=== PATIENT | male | born 1945 | race Asian ===

== ENCOUNTER → 2016-12-04 | Outpatient (CLI) | payer MEDICAID | END | disposition home or self-care (01) | LOC: RADPV 10:15 | PROVIDERS: ATTEND Internal Medicine Nephrology | DX: N18.4 Chronic kidney disease, stage 4 (severe) (principal) | CPT/HCPCS: 76770 ==

== ENCOUNTER → 2016-12-25 | Outpatient (CLI) | payer MEDICAID ==
[2016-12-25 10:28] LABS: BASOPHILS % (AUTO) 0.3 % (0.0-2.0); EOSINOPHILS % (AUTO) 2.3 % (1.0-6.0); HEMATOCRIT 38.1 % (41-53); LYMPHOCYTES # (AUTO) 2.5 K/uL (1.0-4.8); LYMPHOCYTES % (AUTO) 31.4 % (22.0-44.0); MEAN CORPUSCULAR HEMOGLOBIN 30.8 pg (26.0-34.0); MEAN CORPUSCULAR HGB CONC 34.2 G/dL (31.0-37.0); MEAN CORPUSCULAR VOLUME 90 fL (80-100); MONOCYTES # (AUTO) 0.5 K/uL (0.1-1.0); MONOCYTES % (AUTO) 6.3 % (2.0-9.0); NEUTROPHILS # (AUTO) 4.8 K/uL (1.8-7.7); NEUTROPHILS % (AUTO) 59.7 % (40.0-70.0); PLATELET COUNT (AUTO) 279 K/uL (150-450); RED BLOOD CELL COUNT(AUTO) 4.23 MIL/uL (4.50-5.90); RED CELL DISTRIBUTION WIDTH 14.2 % (11.5-14.5)
[2016-12-25 10:38] LABS: HEMOGLOBIN A1C 8.1 % (4.5-6.2)
[2016-12-25 10:49] LABS: BILIRUBIN,TOTAL 0.2 mg/dL (0.1-1.0); CALCIUM, TOTAL 10.2 mg/dL (8.8-10.5); CHOL/HDL RATIO 5.7 (4.2-7.3); CREATININE 2.76 mg/dL (0.60-1.30); MAGNESIUM 2.3 mg/dL (1.80-2.40); PHOSPHORUS 5.6 mg/dL (2.5-4.9); THYROID STIMULATING HORMONE 2.69 uIU/mL (0.36-3.74); TOTAL PROTEIN, SERUM 8.5 g/dL (6.4-8.2)
[2016-12-25 10:53] LABS: APPEARANCE,URINE CLEAR (CLEAR); GLUCOSE, URINE (UA) NEGATIVE (NEGATIVE); KETONES,URINE NEGATIVE (NEGATIVE); LEUKOCYTE ESTERASE ,URINE NEGATIVE (NEGATIVE); OCCULT BLOOD,URINE NEGATIVE (NEGATIVE); PH,URINE 5.5 (5.0-8.0); PROTEIN,URINE POS 1+ (NEGATIVE)
[2016-12-25 10:56] LABS: ADD UA MICROSCOPIC NO
[2016-12-25 10:58] LABS: POTASSIUM 6.3 mmol/L (3.5-5.1)
[2016-12-25 10:59] LABS: URIC ACID 8.6 mg/dL (2.6-7.2)
[2016-12-26 12:40] LABS: CREATININE, URINE (mALB) 70.7 mg/dL (Not Estab.)
== END | disposition home or self-care (01) ==
LOC: LABPV 08:10
PROVIDERS: ATTEND Internal Medicine Nephrology
DX: E11.9 Type 2 diabetes mellitus without complications (principal); E78.1 Pure hyperglyceridemia; Z87.442 Personal history of urinary calculi
CPT/HCPCS: 81050; 82043; 82306; 82570; 82575; 83036; 83735; 83970; 84100; 84156; 84443; 84550

== ENCOUNTER → 2017-03-06 | Outpatient (CLI) | payer MEDICAID ==
[2017-03-06 09:41] LABS: BASOPHILS % (AUTO) 0.4 % (0.0-2.0); EOSINOPHILS % (AUTO) 2.8 % (1.0-6.0); HEMATOCRIT 40.7 % (41-53); HEMOGLOBIN 13.4 g/dL (13.5-17.5); LYMPHOCYTES # (AUTO) 1.8 K/uL (1.0-4.8); LYMPHOCYTES % (AUTO) 23.7 % (22.0-44.0); MEAN CORPUSCULAR HEMOGLOBIN 29.6 pg (26.0-34.0); MEAN CORPUSCULAR VOLUME 90 fL (80-100); MONOCYTES # (AUTO) 0.4 K/uL (0.1-1.0); NEUTROPHILS % (AUTO) 67.1 % (40.0-70.0); PLATELET COUNT (AUTO) 232 K/uL (150-450); RED BLOOD CELL COUNT(AUTO) 4.52 MIL/uL (4.50-5.90); RED CELL DISTRIBUTION WIDTH 13.5 % (11.5-14.5)
[2017-03-06 10:01] LABS: ALBUMIN 3.7 g/dL (3.4-5.0); CALCIUM, TOTAL 9.1 mg/dL (8.8-10.5); CREATININE 2.72 mg/dL (0.60-1.30); PHOSPHORUS 4.4 mg/dL (2.5-4.9)
[2017-03-06 10:05] LABS: HEMOGLOBIN A1C 8.1 % (4.5-6.2)
[2017-03-06 10:07] LABS: APPEARANCE,URINE CLEAR (CLEAR); BILIRUBIN,URINE NEGATIVE (NEGATIVE); GLUCOSE, URINE (UA) 250 mg/dL (NEGATIVE); KETONES,URINE NEGATIVE (NEGATIVE); LEUKOCYTE ESTERASE ,URINE NEGATIVE (NEGATIVE); NITRATE,URINE NEGATIVE (NEGATIVE); OCCULT BLOOD,URINE NEGATIVE (NEGATIVE); PH,URINE 5.5 (5.0-8.0); PROTEIN,URINE SEE CONFIRM (NEGATIVE); UROBILINOGEN,URINE 0.2 mg/dL (<=1.0)
[2017-03-06 11:17] LABS: SULFOSALICYLIC ACID,URINE 1+ (Negative)
[2017-03-06 11:18] LABS: RBC,URINE 0-2 /HPF (0-2); WBC,URINE 0-2 /HPF (0-5)
[2017-03-06 11:19] LABS: BACTERIA,URINE None Seen /HPF (None Seen)
[2017-03-06 11:20] LABS: SQUAMOUS EPITHELIAL CELL,UR Rare /LPF (None Seen)
== END | disposition home or self-care (01) ==
LOC: LABPV 08:01
PROVIDERS: ATTEND Internal Medicine Nephrology
DX: E11.22 Type 2 diabetes mellitus with diabetic chronic kidney disease (principal); N18.4 Chronic kidney disease, stage 4 (severe); E78.1 Pure hyperglyceridemia
CPT/HCPCS: 82043; 82570; 83036; 83735

== ENCOUNTER → 2017-05-07 | Outpatient (CLI) | payer MEDICAID ==
[2017-05-07 10:55] LABS: BASOPHILS % (AUTO) 0.5 % (0.0-2.0); EOSINOPHILS % (AUTO) 2.7 % (1.0-6.0); HEMATOCRIT 41.1 % (41-53); HEMOGLOBIN 13.8 g/dL (13.5-17.5); LYMPHOCYTES # (AUTO) 1.7 K/uL (1.0-4.8); LYMPHOCYTES % (AUTO) 23.6 % (22.0-44.0); MEAN CORPUSCULAR HEMOGLOBIN 29.7 pg (26.0-34.0); MEAN CORPUSCULAR HGB CONC 33.6 G/dL (31.0-37.0); MEAN CORPUSCULAR VOLUME 88 fL (80-100); MONOCYTES # (AUTO) 0.6 K/uL (0.1-1.0); MONOCYTES % (AUTO) 7.6 % (2.0-9.0); NEUTROPHILS # (AUTO) 4.8 K/uL (1.8-7.7); NEUTROPHILS % (AUTO) 65.6 % (40.0-70.0); PLATELET COUNT (AUTO) 269 K/uL (150-450); RED BLOOD CELL COUNT(AUTO) 4.65 MIL/uL (4.50-5.90); RED CELL DISTRIBUTION WIDTH 14.1 % (11.5-14.5)
[2017-05-07 11:03] LABS: APPEARANCE,URINE CLEAR (CLEAR); BILIRUBIN,URINE NEGATIVE (NEGATIVE); GLUCOSE, URINE (UA) NEGATIVE (NEGATIVE); KETONES,URINE NEGATIVE (NEGATIVE); LEUKOCYTE ESTERASE ,URINE NEGATIVE (NEGATIVE); NITRATE,URINE NEGATIVE (NEGATIVE); OCCULT BLOOD,URINE NEGATIVE (NEGATIVE); PH,URINE 5.5 (5.0-8.0); PROTEIN,URINE SEE CONFIRM (NEGATIVE); UROBILINOGEN,URINE 0.2 mg/dL (<=1.0)
[2017-05-07 11:18] LABS: ALBUMIN 3.9 g/dL (3.4-5.0); CALCIUM, TOTAL 9.6 mg/dL (8.8-10.5); CHOL/HDL RATIO 6.3 (4.2-7.3); CREATININE 2.95 mg/dL (0.60-1.30); PHOSPHORUS 3.8 mg/dL (2.5-4.9)
[2017-05-07 11:30] LABS: HEMOGLOBIN A1C 7.7 % (4.5-6.2)
[2017-05-07 12:17] LABS: SULFOSALICYLIC ACID,URINE 2+ (Negative)
[2017-05-07 12:18] LABS: RBC,URINE None Seen /HPF (0-2)
[2017-05-07 12:19] LABS: BACTERIA,URINE Rare /HPF (None Seen); SQUAMOUS EPITHELIAL CELL,UR Rare /LPF (None Seen); WBC,URINE 0-2 /HPF (0-5)
== END | disposition home or self-care (01) ==
LOC: LABPV 08:01
PROVIDERS: ATTEND Internal Medicine Nephrology
DX: E78.5 Hyperlipidemia, unspecified (principal); E55.9 Vitamin D deficiency, unspecified; R94.4 Abnormal results of kidney function studies; R82.90 Unspecified abnormal findings in urine; R68.89 Other general symptoms and signs; R79.89 Other specified abnormal findings of blood chemistry
CPT/HCPCS: 82043; 82306; 82570; 83036; 83735; 83970

== ENCOUNTER → 2017-06-04 | Outpatient (CLI) | payer MEDICAID ==
[2017-06-04 09:40] LABS: ALBUMIN 3.8 g/dL (3.4-5.0); CALCIUM, TOTAL 9.3 mg/dL (8.8-10.5); CREATININE 3.11 mg/dL (0.60-1.30); PHOSPHORUS 4.5 mg/dL (2.5-4.9); POTASSIUM 4.6 mmol/L (3.5-5.1)
== END | disposition home or self-care (01) ==
LOC: LABPV 08:30
PROVIDERS: ATTEND Internal Medicine Nephrology
DX: E11.22 Type 2 diabetes mellitus with diabetic chronic kidney disease (principal); N18.4 Chronic kidney disease, stage 4 (severe); E78.1 Pure hyperglyceridemia

== ENCOUNTER 2022-05-06 19:48 | Inpatient (IN) | payer MEDICAID, OTHER ==
[~2022-05-06] VITALS: Ht 167.6 cm; Wt 66.0 kg
[~2022-05-06 19:48] MED LIST: 0.9% SODIUM CHLORIDE 10 ML SYRINGE IVP ONE; AMIODARONE HCL 50 MG/ML 3 ML VIAL IVP ONE; ASPI-556 PO; ATOR20TA86 PO; EPINEPHrine 1:10,000 [1 MG/10 ML] SYRINGE IVP ONE; FURO80 PO; METO25XL PO
[2022-05-06] MEDS ORDERED: LABETALOL HCL 5 MG/ML 20 ML VIAL IVP PRN ×3 (20:00→21:15)
[2022-05-06 20:15] LABS: BASOPHILS % (AUTO) 0.5 % (0.0-2.0); EOSINOPHILS % (AUTO) 3.2 % (1.0-6.0); HEMATOCRIT 35.2 % (41-53); HEMOGLOBIN 11.6 g/dL (13.5-17.5); LYMPHOCYTES # (AUTO) 1.9 K/uL (1.0-4.8); LYMPHOCYTES % (AUTO) 29.1 % (22.0-44.0); MEAN CORPUSCULAR HEMOGLOBIN 30.7 pg (26.0-34.0); MEAN CORPUSCULAR HGB CONC 33.1 G/dL (31.0-37.0); MEAN CORPUSCULAR VOLUME 93 fL (80-100); MONOCYTES # (AUTO) 0.7 K/uL (0.1-1.0); MONOCYTES % (AUTO) 10.3 % (2.0-9.0); NEUTROPHILS # (AUTO) 3.6 K/uL (1.8-7.7); NEUTROPHILS % (AUTO) 56.9 % (40.0-70.0); PLATELET COUNT (AUTO) 120 K/uL (150-450); RED BLOOD CELL COUNT(AUTO) 3.79 MIL/uL (4.50-5.90)
[2022-05-06] MEDS ORDERED: SODIUM CHLORIDE 0.9% 100 ML ONE (20:18)
[2022-05-06] MEDS ORDERED: IOHEXOL 350 MG/ML 100 ML VIAL ONE (20:19)
[2022-05-06 20:24] LABS: CALCIUM, TOTAL 8.3 mg/dL (8.8-10.5); CREATININE 3.41 mg/dL (0.60-1.30); POTASSIUM 4.1 mmol/L (3.5-5.1)
[2022-05-06 20:28] LABS: PROTHROMBIN TIME 10.8 SEC (9.4-11.6)
[2022-05-06 20:30] LABS: ALBUMIN 3.4 g/dL (3.4-5.0); BILIRUBIN,TOTAL 0.6 mg/dL (0.1-1.0); TOTAL PROTEIN, SERUM 7.8 g/dL (6.4-8.2)
[2022-05-06] MEDS ORDERED: MORPHINE SULFATE 2 MG/ML SYRINGE IVP PRN (21:15)
[2022-05-06] MEDS ORDERED: ZOLPIDEM TARTRATE 5 MG TABLET PO PRN (21:15)
[2022-05-06] MEDS ORDERED: BISACODYL 10 MG RECTAL RECTAL SUPPOSITORY PR PRN (21:15)
[2022-05-06] MEDS ORDERED: ONDANSETRON HCL 4 MG/2 ML VIAL IVP PRN (21:15)
[2022-05-06] MEDS ORDERED: MAGNESIUM HYDROXIDE SUSPENSION 30 ML UDCUP PO PRN (21:15)
[2022-05-06] MEDS ORDERED: LevETIRAcetam 1,000 MG in DEXTROSE 5%-WATER 100 ML IV ONE (22:15)
[2022-05-06 23:18] LABS: COVID AG,FIA SOURCE NASAL SWAB
[2022-05-06 23:27] LABS: AMPHET/METH SCREEN,URINE NEGATIVE (NEGATIVE); BARBITURATE SCREEN, URINE NEGATIVE (NEGATIVE); BENZODIAZEPINES SCREEN,URINE NEGATIVE (NEGATIVE); CANNABINOID SCREEN,URINE NEGATIVE (NEGATIVE); COCAINE SCREEN,URINE NEGATIVE (NEGATIVE); METHADONE SCREEN, URINE NEGATIVE (NEGATIVE); OPIATE SCREEN,URINE NEGATIVE (NEGATIVE); PHENCYCLIDINE SCREEN,URINE NEGATIVE (NEGATIVE)
[2022-05-06 23:35] LABS: APPEARANCE,URINE CLEAR (CLEAR); BILIRUBIN,URINE NEGATIVE (NEGATIVE); GLUCOSE, URINE (UA) >=1000 mg/dL (NEGATIVE); KETONES,URINE NEGATIVE (NEGATIVE); LEUKOCYTE ESTERASE ,URINE NEGATIVE (NEGATIVE); NITRATE,URINE NEGATIVE (NEGATIVE); OCCULT BLOOD,URINE NEGATIVE (NEGATIVE); PROTEIN,URINE TRACE mg/dL (NEGATIVE); SPECIFIC GRAVITIY, URINE 1.015 (1.003-1.030); UROBILINOGEN,URINE <=1.0 mg/dL (<=1.0)
[2022-05-06 23:50] LABS: BACTERIA,URINE None Seen /HPF (None Seen); RBC,URINE None Seen /HPF (0-2); SQUAMOUS EPITHELIAL CELL,UR Rare /LPF (None Seen); WBC,URINE None Seen /HPF (0-5)
[2022-05-07] MEDS: DOCUSATE SODIUM 100 MG CAPSULE PO SCH ×2 (08:08→20:16)
[2022-05-07] MEDS: PANTOPRAZOLE SODIUM 40 MG DR TABLET PO SCH (08:08)
[2022-05-07] MEDS: DEXAMETHASONE SOD PHOS 4 MG/ML VIAL IVP SCH (08:19)
[2022-05-07] MEDS: LevETIRAcetam 500 MG in DEXTROSE 5%-WATER 100 ML IV SCH ×2 (09:49→21:38)
[2022-05-07 14:16] LABS: GLUCOSE,POINT OF CARE 178 MG/DL (70-110)
[2022-05-07] MEDS ORDERED: LISI10TA24 PO (21:22)
[2022-05-07] MEDS ORDERED: ATOR40TA71 PO (21:22)
[2022-05-07] MEDS ORDERED: EMPA10TA3 PO (21:22)
[2022-05-07] MEDS ORDERED: INSLAN SQ (21:22)
[2022-05-07] MEDS ORDERED: DEXTROSE 50%-WATER 25 GM/50 ML SYRINGE IVP PRN (21:30)
[2022-05-07 21:31] LABS: GLUCOSE,POINT OF CARE 244 MG/DL (70-110)
[2022-05-07] MEDS: INSULIN LISPRO 100 UNITS/ML SQ PRN (21:45)
[2022-05-08] MEDS: INSULIN LISPRO 100 UNITS/ML SQ PRN ×2 (05:58→18:01)
[2022-05-08 06:06] LABS: GLUCOSE,POINT OF CARE 203 MG/DL (70-110)
[2022-05-08] MEDS ORDERED: GELATIN SPONGE,ABSORBABLE 50 MM TP ONE (06:57)
[2022-05-08] MEDS ORDERED: LIDOCAINE 1%/EPI 1:200,000/PF 30 ML VIAL ONE (06:57)
[2022-05-08] MEDS ORDERED: THROMBIN, BOVINE 20000 UNITS/VIAL POWDER TP ONE (08:13)
[2022-05-08] MEDS ORDERED: SODIUM CL IRRIG SOLN BAG 0 ML IRRIG ONE (08:13)
[2022-05-08] MEDS ORDERED: SODIUM CHLORIDE 0.9% 0 ML ONE ×2 (08:26→08:37)
[2022-05-08] MEDS ORDERED: SODIUM CHLORIDE 0.9% 500 ML IV ONE (08:35)
[2022-05-08] MEDS ORDERED: VANCOMYCIN HCL 1 GM/VIAL ONE ×2 (08:36→13:05)
[2022-05-08] MEDS: DOCUSATE SODIUM 100 MG CAPSULE PO SCH ×2 (09:00→20:40)
[2022-05-08] MEDS: PANTOPRAZOLE SODIUM 40 MG DR TABLET PO SCH (09:00)
[2022-05-08] MEDS: DEXAMETHASONE SOD PHOS 4 MG/ML VIAL IVP SCH (09:55)
[2022-05-08] MEDS: LevETIRAcetam 500 MG in DEXTROSE 5%-WATER 100 ML IV SCH ×2 (10:09→21:39)
[2022-05-08] MEDS ORDERED: SODIUM CHLORIDE 0.9% 1,000 ML ONE (10:37)
[2022-05-08] MEDS ORDERED: LORazepam 2 MG/ML VIAL ONE (11:08)
[2022-05-08] MEDS ORDERED: RINGERS SOLUTION,LACTATED 1,000 ML IV ONE ×2 (12:07→13:45)
[2022-05-08] MEDS ORDERED: SODIUM CHLORIDE 0.9% 100 ML ONE (13:20)
[2022-05-08] MEDS ORDERED: ASPI-1522 PO (13:30)
[2022-05-08] MEDS ORDERED: SACU1TAB PO (13:30)
[2022-05-08] MEDS ORDERED: SODI5POW3 PO (13:30)
[2022-05-08] MEDS ORDERED: FURO40TA5 PO (13:30)
[2022-05-08] MEDS ORDERED: OMEG10005 PO (13:30)
[2022-05-08] MEDS ORDERED: GLIP5TAB11 PO (13:30)
[2022-05-08] MEDS ORDERED: BACITRACIN 28 GM OINTMENT TP ONE (13:52)
[2022-05-08] MEDS ORDERED: SUGAMMADEX SODIUM 200 MG/2 ML VIAL IVP ONE ×2 (14:01→14:32)
[2022-05-08] MEDS ORDERED: ACETAMINOPHEN 1000 MG/ISO-OSM 100 ML IV ONE (14:02)
[2022-05-08] MEDS ORDERED: FentaNYL CITRATE PF 100 MCG/2 ML VIAL IVP PRN (14:30)
[2022-05-08] MEDS ORDERED: HYDROmorphone HCL 2 MG/ML SYRINGE IVP PRN (14:30)
[2022-05-08 15:30] VITALS: BP 81/42
[2022-05-08] MEDS: PHENYLEPHRINE 200 MG/D5%-WATER 250 ML IV PRN ×2 (16:30→16:49)
[2022-05-08 16:38] VITALS: BP 113/56
[2022-05-08 18:01] LABS: GLUCOSE,POINT OF CARE 240 MG/DL (70-110)
[2022-05-08 20:00] VITALS: BP 116/81
[2022-05-08] MEDS ORDERED: SODIUM CHLORIDE 0.9% 250 ML IV ONE (20:08)
[2022-05-08] MEDS: CeFAZolin 1 GM/DEXTROSE 50 ML IV SCH (20:30)
[2022-05-09] VITALS: BP 121/82
[2022-05-09] MEDS: INSULIN LISPRO 100 UNITS/ML SQ PRN ×4 (01:03→17:59)
[2022-05-09] MEDS: CeFAZolin 1 GM/DEXTROSE 50 ML IV SCH ×3 (03:58→20:57)
[2022-05-09 04:00] VITALS: BP 127/92
[2022-05-09 04:02] LABS: GLUCOSE,POINT OF CARE 244 MG/DL (70-110)
[2022-05-09 06:00] LABS: BASOPHILS % (AUTO) 0.1 % (0.0-2.0); EOSINOPHILS % (AUTO) 0 % (1.0-6.0); HEMATOCRIT 32.5 % (41-53); HEMOGLOBIN 10.8 g/dL (13.5-17.5); LYMPHOCYTES # (AUTO) 0.8 K/uL (1.0-4.8); LYMPHOCYTES % (AUTO) 7.7 % (22.0-44.0); MEAN CORPUSCULAR HEMOGLOBIN 31.1 pg (26.0-34.0); MEAN CORPUSCULAR HGB CONC 33.4 G/dL (31.0-37.0); MEAN CORPUSCULAR VOLUME 93 fL (80-100); MONOCYTES % (AUTO) 9.8 % (2.0-9.0); NEUTROPHILS # (AUTO) 8.8 K/uL (1.8-7.7); NEUTROPHILS % (AUTO) 82.4 % (40.0-70.0); PLATELET COUNT (AUTO) 160 K/uL (150-450); RED BLOOD CELL COUNT(AUTO) 3.49 MIL/uL (4.50-5.90); RED CELL DISTRIBUTION WIDTH 17.3 % (11.5-14.5)
[2022-05-09] MEDS ORDERED: ONDANSETRON HCL 4 MG/2 ML VIAL IVP ONE (06:07)
[2022-05-09] MEDS ORDERED: FentaNYL CITRATE PF 100 MCG/2 ML VIAL IVP ONE (06:07)
[2022-05-09] MEDS ORDERED: ROCURONIUM BROMIDE 10 MG/ML 5 ML VIAL IVP ONE (06:07)
[2022-05-09] MEDS ORDERED: PHENYLEPHRINE HCL 10 MG/ML VIAL IVP ONE (06:07)
[2022-05-09] MEDS ORDERED: LIDOCAINE/PF 2% 5 ML VIAL IM ONE (06:07)
[2022-05-09] MEDS ORDERED: MIDAZOLAM HCL 2 MG/2 ML VIAL IVP ONE (06:07)
[2022-05-09] MEDS ORDERED: CefoTEtan DISODIUM 1 GM/VIAL IVP ONE (06:07)
[2022-05-09 06:12] LABS: CALCIUM, TOTAL 8.9 mg/dL (8.8-10.5); CREATININE 4.07 mg/dL (0.60-1.30); POTASSIUM 5.3 mmol/L (3.5-5.1)
[2022-05-09 08:00] VITALS: BP 119/83
[2022-05-09] MEDS: OXYGEN THERAPY IH SCH ×2 (08:00→20:00)
[2022-05-09] MEDS: DEXAMETHASONE SOD PHOS 4 MG/ML VIAL IVP SCH (08:21)
[2022-05-09] MEDS: PANTOPRAZOLE SODIUM 40 MG DR TABLET PO SCH (09:00)
[2022-05-09] MEDS: DOCUSATE SODIUM 100 MG CAPSULE PO SCH ×2 (09:00→20:58)
[2022-05-09] MEDS: LevETIRAcetam 500 MG in DEXTROSE 5%-WATER 100 ML IV SCH ×2 (10:13→22:17)
[2022-05-09 12:00] VITALS: BP 125/83
[2022-05-09] MEDS ORDERED: SODIUM POLYSTYRENE SULFONATE 15 GM/60 ML SUSPENSION BOTTLE PO ONE (13:15)
[2022-05-09 16:00] VITALS: BP 109/71
[2022-05-09 18:51] LABS: GLUCOSE,POINT OF CARE 171 MG/DL (70-110)
[2022-05-09 18:51] LABS: GLUCOSE,POINT OF CARE 192 MG/DL (70-110)
[2022-05-09 18:51] LABS: GLUCOSE,POINT OF CARE 236 MG/DL (70-110)
[2022-05-09 20:00] VITALS: BP 121/80
[2022-05-09] MEDS ORDERED: SODIUM CHLORIDE 0.9% 250 ML IV ONE (20:47)
[2022-05-09] MEDS ORDERED: SODIUM CHLORIDE 0.9% 500 ML IV ONE (20:47)
[2022-05-10] VITALS: BP 130/85
[2022-05-10] MEDS: INSULIN LISPRO 100 UNITS/ML SQ PRN ×4 (00:35→18:08)
[2022-05-10 00:51] LABS: GLUCOSE,POINT OF CARE 209 MG/DL (70-110)
[2022-05-10] MEDS: CeFAZolin 1 GM/DEXTROSE 50 ML IV SCH ×3 (03:28→20:39)
[2022-05-10 04:00] VITALS: BP 110/77
[2022-05-10 05:50] LABS: BASOPHILS % (AUTO) 0.1 % (0.0-2.0); EOSINOPHILS % (AUTO) 0 % (1.0-6.0); HEMATOCRIT 31.4 % (41-53); HEMOGLOBIN 10.3 g/dL (13.5-17.5); LYMPHOCYTES # (AUTO) 0.8 K/uL (1.0-4.8); MEAN CORPUSCULAR HEMOGLOBIN 30.7 pg (26.0-34.0); MEAN CORPUSCULAR HGB CONC 32.8 G/dL (31.0-37.0); MEAN CORPUSCULAR VOLUME 94 fL (80-100); MONOCYTES # (AUTO) 0.8 K/uL (0.1-1.0); MONOCYTES % (AUTO) 9.8 % (2.0-9.0); NEUTROPHILS # (AUTO) 6.6 K/uL (1.8-7.7); NEUTROPHILS % (AUTO) 80.1 % (40.0-70.0); PLATELET COUNT (AUTO) 116 K/uL (150-450); RED BLOOD CELL COUNT(AUTO) 3.36 MIL/uL (4.50-5.90); RED CELL DISTRIBUTION WIDTH 17.3 % (11.5-14.5)
[2022-05-10 05:58] LABS: CALCIUM, TOTAL 9.4 mg/dL (8.8-10.5); CREATININE 3.5 mg/dL (0.60-1.30); POTASSIUM 5.1 mmol/L (3.5-5.1)
[2022-05-10 06:11] LABS: GLUCOSE,POINT OF CARE 165 MG/DL (70-110)
[2022-05-10 08:00] VITALS: BP 118/59
[2022-05-10] MEDS: DOCUSATE SODIUM 100 MG CAPSULE PO SCH ×2 (09:06→20:53)
[2022-05-10] MEDS: PANTOPRAZOLE SODIUM 40 MG DR TABLET PO SCH (09:06)
[2022-05-10] MEDS: DEXAMETHASONE SOD PHOS 4 MG/ML VIAL IVP SCH (09:15)
[2022-05-10] MEDS: LevETIRAcetam 500 MG in DEXTROSE 5%-WATER 100 ML IV SCH ×2 (09:16→22:17)
[2022-05-10 12:00] VITALS: BP 131/74
[2022-05-10] MEDS: CITRIC ACID/SODIUM CITRATE 30 ML SOLUTION UDCUP PO SCH (12:32)
[2022-05-10] MEDS: CARVEDILOL 3.125 MG TABLET PO SCH ×2 (12:32→20:53)
[2022-05-10 16:00] VITALS: BP 122/69
[2022-05-10] MEDS ORDERED: DIGOXIN 250 MCG/ML 2 ML AMP IVP ONE (17:00)
[2022-05-10] MEDS ORDERED: AMIODARONE HCL 150 MG in DEXTROSE 5%-WATER 97 ML IV ONE (17:45)
[2022-05-10] MEDS ORDERED: AMIODARONE HCL 360 MG in DEXTROSE 5%-WATER 242.8 ML IV ONE (18:00)
[2022-05-10 20:00] VITALS: BP 118/98
[2022-05-10] MEDS: OXYGEN THERAPY IH SCH (20:00)
[2022-05-11] VITALS: BP 122/50
[2022-05-11] MEDS ORDERED: AMIODARONE HCL 540 MG in DEXTROSE 5%-WATER 239.2 ML IV ONE ×2
[2022-05-11] MEDS: INSULIN LISPRO 100 UNITS/ML SQ PRN ×3 (00:26→20:47)
[2022-05-11 04:00] VITALS: BP 143/73
[2022-05-11] MEDS: CeFAZolin 1 GM/DEXTROSE 50 ML IV SCH (04:11)
[2022-05-11 06:35] LABS: CALCIUM, TOTAL 9.3 mg/dL (8.8-10.5); CREATININE 3.45 mg/dL (0.60-1.30); PHOSPHORUS 4.2 mg/dL (2.5-4.9); POTASSIUM 5.2 mmol/L (3.5-5.1)
[2022-05-11 06:42] LABS: GLUCOSE,POINT OF CARE 311 MG/DL (70-110)
[2022-05-11 06:42] LABS: GLUCOSE,POINT OF CARE 246 MG/DL (70-110)
[2022-05-11 06:47] LABS: GLUCOSE,POINT OF CARE 279 MG/DL (70-110)
[2022-05-11 06:47] LABS: GLUCOSE,POINT OF CARE 215 MG/DL (70-110)
[2022-05-11 07:19] LABS: BASOPHILS % (AUTO) 0.1 % (0.0-2.0); EOSINOPHILS % (AUTO) 0 % (1.0-6.0); HEMATOCRIT 33.2 % (41-53); HEMOGLOBIN 10.8 g/dL (13.5-17.5); LYMPHOCYTES # (AUTO) 0.8 K/uL (1.0-4.8); LYMPHOCYTES % (AUTO) 9.9 % (22.0-44.0); MEAN CORPUSCULAR HEMOGLOBIN 30.5 pg (26.0-34.0); MEAN CORPUSCULAR HGB CONC 32.5 G/dL (31.0-37.0); MEAN CORPUSCULAR VOLUME 94 fL (80-100); MONOCYTES # (AUTO) 0.7 K/uL (0.1-1.0); MONOCYTES % (AUTO) 8.3 % (2.0-9.0); NEUTROPHILS % (AUTO) 81.7 % (40.0-70.0); PLATELET COUNT (AUTO) 127 K/uL (150-450); RED BLOOD CELL COUNT(AUTO) 3.53 MIL/uL (4.50-5.90); RED CELL DISTRIBUTION WIDTH 17.6 % (11.5-14.5)
[2022-05-11 08:00] VITALS: BP 133/91
[2022-05-11] MEDS: OXYGEN THERAPY IH SCH ×2 (08:00→20:00)
[2022-05-11] MEDS: CARVEDILOL 3.125 MG TABLET PO SCH ×2 (10:38→20:48)
[2022-05-11] MEDS: DOCUSATE SODIUM 100 MG CAPSULE PO SCH ×2 (10:38→20:48)
[2022-05-11] MEDS: DEXAMETHASONE SOD PHOS 4 MG/ML VIAL IVP SCH (10:38)
[2022-05-11] MEDS: PANTOPRAZOLE SODIUM 40 MG DR TABLET PO SCH (10:38)
[2022-05-11] MEDS: LevETIRAcetam 500 MG in DEXTROSE 5%-WATER 100 ML IV SCH ×2 (10:40→21:45)
[2022-05-11] MEDS: CITRIC ACID/SODIUM CITRATE 30 ML SOLUTION UDCUP PO SCH (10:54)
[2022-05-11 12:00] VITALS: BP 147/98
[2022-05-11 12:11] LABS: GLUCOSE,POINT OF CARE 269 MG/DL (70-110)
[2022-05-11 16:00] VITALS: BP 147/98
[2022-05-11] MEDS ORDERED: AMIODARONE HCL 750 MG in DEXTROSE 5%-WATER 485 ML IV SCH (18:00)
[2022-05-11 19:16] LABS: GLUCOSE,POINT OF CARE 280 MG/DL (70-110)
[2022-05-11 20:00] VITALS: BP 138/98
[2022-05-11] MEDS: HYDROCODONE/ACETAMINOPHEN 5-325 MG TABLET PO PRN (20:48)
[2022-05-11 21:26] LABS: GLUCOSE,POINT OF CARE 280 MG/DL (70-110)
[2022-05-12] VITALS: BP 142/90
[2022-05-12 04:00] VITALS: BP 150/90
[2022-05-12] MEDS: INSULIN LISPRO 100 UNITS/ML SQ PRN ×4 (06:04→22:10)
[2022-05-12 06:26] LABS: BASOPHILS % (AUTO) 0.1 % (0.0-2.0); EOSINOPHILS % (AUTO) 0 % (1.0-6.0); HEMATOCRIT 36.3 % (41-53); HEMOGLOBIN 12.1 g/dL (13.5-17.5); LYMPHOCYTES # (AUTO) 0.9 K/uL (1.0-4.8); LYMPHOCYTES % (AUTO) 9.3 % (22.0-44.0); MEAN CORPUSCULAR HEMOGLOBIN 31.3 pg (26.0-34.0); MEAN CORPUSCULAR HGB CONC 33.4 G/dL (31.0-37.0); MEAN CORPUSCULAR VOLUME 94 fL (80-100); MONOCYTES # (AUTO) 0.7 K/uL (0.1-1.0); MONOCYTES % (AUTO) 7.6 % (2.0-9.0); NEUTROPHILS # (AUTO) 7.9 K/uL (1.8-7.7); PLATELET COUNT (AUTO) 149 K/uL (150-450); RED BLOOD CELL COUNT(AUTO) 3.87 MIL/uL (4.50-5.90); RED CELL DISTRIBUTION WIDTH 17.1 % (11.5-14.5)
[2022-05-12 06:32] LABS: CREATININE 3.02 mg/dL (0.60-1.30); POTASSIUM 5.2 mmol/L (3.5-5.1)
[2022-05-12 08:00] VITALS: BP 130/84
[2022-05-12] MEDS: LevETIRAcetam 500 MG in DEXTROSE 5%-WATER 100 ML IV SCH ×2 (09:02→23:22)
[2022-05-12] MEDS: CARVEDILOL 3.125 MG TABLET PO SCH (09:02)
[2022-05-12] MEDS: PANTOPRAZOLE SODIUM 40 MG DR TABLET PO SCH (09:02)
[2022-05-12] MEDS: DEXAMETHASONE SOD PHOS 4 MG/ML VIAL IVP SCH (09:02)
[2022-05-12] MEDS: CITRIC ACID/SODIUM CITRATE 30 ML SOLUTION UDCUP PO SCH (09:02)
[2022-05-12] MEDS: DOCUSATE SODIUM 100 MG CAPSULE PO SCH ×2 (09:02→20:10)
[2022-05-12] MEDS: OXYGEN THERAPY IH SCH ×2 (10:21→19:48)
[2022-05-12] MEDS: HYDROCODONE/ACETAMINOPHEN 5-325 MG TABLET PO PRN (11:25)
[2022-05-12 11:51] LABS: GLUCOSE,POINT OF CARE 198 MG/DL (70-110)
[2022-05-12 12:00] VITALS: BP 129/78
[2022-05-12] MEDS: AMIODARONE HCL 200 MG TABLET PO SCH ×2 (12:37→20:09)
[2022-05-12 13:57] LABS: GLUCOSE,POINT OF CARE 392 MG/DL (70-110)
[2022-05-12 16:00] VITALS: BP 135/78
[2022-05-12 17:41] LABS: GLUCOSE,POINT OF CARE 379 MG/DL (70-110)
[2022-05-12 20:00] VITALS: BP 153/80
[2022-05-12] MEDS: CARVEDILOL 6.25 MG TABLET PO SCH (20:09)
[2022-05-12 22:16] LABS: GLUCOSE,POINT OF CARE 380 MG/DL (70-110)
[2022-05-13] VITALS (7 sets, daily range): BP systolic 103–136; BP diastolic 62–82
[2022-05-13] MEDS: INSULIN LISPRO 100 UNITS/ML SQ PRN ×4 (06:29→20:42)
[2022-05-13 07:15] LABS: GLUCOSE,POINT OF CARE 201 MG/DL (70-110)
[2022-05-13] MEDS: AMIODARONE HCL 200 MG TABLET PO SCH ×2 (08:55→20:29)
[2022-05-13] MEDS: CARVEDILOL 6.25 MG TABLET PO SCH ×2 (08:55→20:29)
[2022-05-13] MEDS: DEXAMETHASONE SOD PHOS 4 MG/ML VIAL IVP SCH (09:00)
[2022-05-13] MEDS: PANTOPRAZOLE SODIUM 40 MG DR TABLET PO SCH (09:00)
[2022-05-13] MEDS: DOCUSATE SODIUM 100 MG CAPSULE PO SCH ×2 (09:00→20:29)
[2022-05-13] MEDS: OXYGEN THERAPY IH SCH ×2 (09:12→20:24)
[2022-05-13 09:45] LABS: BASOPHILS % (AUTO) 0.2 % (0.0-2.0); EOSINOPHILS % (AUTO) 0.1 % (1.0-6.0); HEMATOCRIT 36.5 % (41-53); HEMOGLOBIN 11.8 g/dL (13.5-17.5); LYMPHOCYTES # (AUTO) 0.9 K/uL (1.0-4.8); LYMPHOCYTES % (AUTO) 9.2 % (22.0-44.0); MEAN CORPUSCULAR HEMOGLOBIN 30.2 pg (26.0-34.0); MEAN CORPUSCULAR HGB CONC 32.2 G/dL (31.0-37.0); MEAN CORPUSCULAR VOLUME 94 fL (80-100); MONOCYTES # (AUTO) 0.9 K/uL (0.1-1.0); MONOCYTES % (AUTO) 8.9 % (2.0-9.0); NEUTROPHILS # (AUTO) 8.3 K/uL (1.8-7.7); NEUTROPHILS % (AUTO) 81.6 % (40.0-70.0); PLATELET COUNT (AUTO) 144 K/uL (150-450); RED CELL DISTRIBUTION WIDTH 16.9 % (11.5-14.5)
[2022-05-13 09:52] LABS: CALCIUM, TOTAL 8.7 mg/dL (8.8-10.5); CREATININE 3.02 mg/dL (0.60-1.30); POTASSIUM 5.1 mmol/L (3.5-5.1)
[2022-05-13] MEDS: LevETIRAcetam 500 MG in DEXTROSE 5%-WATER 100 ML IV SCH ×2 (10:32→22:10)
[2022-05-13] MEDS: CITRIC ACID/SODIUM CITRATE 30 ML SOLUTION UDCUP PO SCH (10:34)
[2022-05-13] MEDS: INSULIN GLARGINE,HUM.REC.ANLOG 100 UNITS/ML SQ SCH (17:52)
[2022-05-13 20:31] LABS: GLUCOSE,POINT OF CARE 399 MG/DL (70-110)
[2022-05-13 20:31] LABS: GLUCOSE,POINT OF CARE 290 MG/DL (70-110)
[2022-05-13] MEDS ORDERED: SODIUM CHLORIDE 0.9% 1,000 ML ONE (22:08)
[2022-05-13 22:41] LABS: GLUCOMETER DEV NAME(LOC) 5N.1C; GLUCOSE,POINT OF CARE 394 MG/DL (70-110)
[2022-05-14 04:32] VITALS: BP 106/66
[2022-05-14] MEDS: INSULIN LISPRO 100 UNITS/ML SQ PRN ×4 (06:08→20:17)
[2022-05-14 08:07] VITALS: BP 105/60
[2022-05-14 08:49] LABS: BASOPHILS % (AUTO) 0.1 % (0.0-2.0); EOSINOPHILS % (AUTO) 0.1 % (1.0-6.0); HEMATOCRIT 34.2 % (41-53); HEMOGLOBIN 11.4 g/dL (13.5-17.5); LYMPHOCYTES # (AUTO) 0.7 K/uL (1.0-4.8); LYMPHOCYTES % (AUTO) 8.4 % (22.0-44.0); MEAN CORPUSCULAR HEMOGLOBIN 30.8 pg (26.0-34.0); MEAN CORPUSCULAR HGB CONC 33.2 G/dL (31.0-37.0); MEAN CORPUSCULAR VOLUME 93 fL (80-100); MONOCYTES # (AUTO) 0.7 K/uL (0.1-1.0); MONOCYTES % (AUTO) 8.2 % (2.0-9.0); NEUTROPHILS # (AUTO) 7.1 K/uL (1.8-7.7); NEUTROPHILS % (AUTO) 83.2 % (40.0-70.0); PLATELET COUNT (AUTO) 143 K/uL (150-450); RED BLOOD CELL COUNT(AUTO) 3.69 MIL/uL (4.50-5.90); RED CELL DISTRIBUTION WIDTH 16.7 % (11.5-14.5)
[2022-05-14 08:56] LABS: CALCIUM, TOTAL 8.5 mg/dL (8.8-10.5); CREATININE 2.65 mg/dL (0.60-1.30); POTASSIUM 5.1 mmol/L (3.5-5.1)
[2022-05-14] MEDS: OXYGEN THERAPY IH SCH ×2 (09:16→20:11)
[2022-05-14] MEDS: PANTOPRAZOLE SODIUM 40 MG DR TABLET PO SCH (09:17)
[2022-05-14] MEDS: AMIODARONE HCL 200 MG TABLET PO SCH ×2 (09:17→20:10)
[2022-05-14] MEDS: CARVEDILOL 6.25 MG TABLET PO SCH ×2 (09:17→20:09)
[2022-05-14] MEDS: DOCUSATE SODIUM 100 MG CAPSULE PO SCH ×2 (09:18→20:09)
[2022-05-14] MEDS: DEXAMETHASONE SOD PHOS 4 MG/ML VIAL IVP SCH (09:18)
[2022-05-14] MEDS: CITRIC ACID/SODIUM CITRATE 30 ML SOLUTION UDCUP PO SCH (09:25)
[2022-05-14] MEDS: INSULIN GLARGINE,HUM.REC.ANLOG 100 UNITS/ML SQ SCH ×2 (09:27→20:16)
[2022-05-14] MEDS: LevETIRAcetam 500 MG in DEXTROSE 5%-WATER 100 ML IV SCH ×2 (09:48→22:12)
[2022-05-14 09:51] LABS: GLUCOMETER DEV NAME(LOC) 5S.1B; GLUCOSE,POINT OF CARE 156 MG/DL (70-110)
[2022-05-14 10:29] LABS: MAGNESIUM 2.6 mg/dL (1.80-2.40); PHOSPHORUS 4.3 mg/dL (2.5-4.9)
[2022-05-14 12:00] VITALS: BP 99/56
[2022-05-14 16:00] VITALS: BP 109/84
[2022-05-14 19:23] VITALS: BP 110/61
[2022-05-14 22:31] LABS: GLUCOMETER DEV NAME(LOC) 5N.1C; GLUCOSE,POINT OF CARE 243 MG/DL (70-110)
[2022-05-14 22:31] LABS: GLUCOMETER DEV NAME(LOC) 5N.1C; GLUCOSE,POINT OF CARE 173 MG/DL (70-110)
[2022-05-14 22:31] LABS: GLUCOMETER DEV NAME(LOC) 5S.1B; GLUCOSE,POINT OF CARE 351 MG/DL (70-110)
[2022-05-14 22:31] LABS: GLUCOMETER DEV NAME(LOC) 5S.1B; GLUCOSE,POINT OF CARE 383 MG/DL (70-110)
[2022-05-15 00:04] VITALS: BP 97/54
[2022-05-15] MEDS: INSULIN LISPRO 100 UNITS/ML SQ PRN ×4 (06:18→20:25)
[2022-05-15 06:31] VITALS: BP 106/62
[2022-05-15 07:29] LABS: BASOPHILS % (AUTO) 0.1 % (0.0-2.0); EOSINOPHILS % (AUTO) 0.1 % (1.0-6.0); HEMATOCRIT 33.1 % (41-53); LYMPHOCYTES # (AUTO) 0.9 K/uL (1.0-4.8); LYMPHOCYTES % (AUTO) 10.3 % (22.0-44.0); MEAN CORPUSCULAR HEMOGLOBIN 31.1 pg (26.0-34.0); MEAN CORPUSCULAR HGB CONC 33.2 G/dL (31.0-37.0); MEAN CORPUSCULAR VOLUME 94 fL (80-100); MONOCYTES # (AUTO) 0.8 K/uL (0.1-1.0); MONOCYTES % (AUTO) 8.6 % (2.0-9.0); NEUTROPHILS # (AUTO) 7.5 K/uL (1.8-7.7); NEUTROPHILS % (AUTO) 80.9 % (40.0-70.0); PLATELET COUNT (AUTO) 143 K/uL (150-450); RED BLOOD CELL COUNT(AUTO) 3.53 MIL/uL (4.50-5.90); RED CELL DISTRIBUTION WIDTH 16.7 % (11.5-14.5)
[2022-05-15 07:30] VITALS: BP 110/65
[2022-05-15 07:45] LABS: CALCIUM, TOTAL 8.4 mg/dL (8.8-10.5); CREATININE 2.75 mg/dL (0.60-1.30); MAGNESIUM 2.6 mg/dL (1.80-2.40); PHOSPHORUS 4.5 mg/dL (2.5-4.9); POTASSIUM 5.6 mmol/L (3.5-5.1)
[2022-05-15] MEDS ORDERED: SODIUM ZIRCONIUM CYCLOSILICATE 5 GM POWDER PACKET PO ONE (09:00)
[2022-05-15] MEDS: DOCUSATE SODIUM 100 MG CAPSULE PO SCH ×2 (09:00→20:21)
[2022-05-15] MEDS: OXYGEN THERAPY IH SCH ×2 (09:08→20:18)
[2022-05-15] MEDS: CITRIC ACID/SODIUM CITRATE 30 ML SOLUTION UDCUP PO SCH (09:08)
[2022-05-15] MEDS: AMIODARONE HCL 200 MG TABLET PO SCH ×2 (09:09→20:22)
[2022-05-15] MEDS: PANTOPRAZOLE SODIUM 40 MG DR TABLET PO SCH (09:09)
[2022-05-15] MEDS: CARVEDILOL 6.25 MG TABLET PO SCH ×2 (09:09→20:21)
[2022-05-15] MEDS: DEXAMETHASONE SOD PHOS 4 MG/ML VIAL IVP SCH (09:10)
[2022-05-15] MEDS: LevETIRAcetam 500 MG in DEXTROSE 5%-WATER 100 ML IV SCH ×2 (09:21→22:10)
[2022-05-15] MEDS: INSULIN GLARGINE,HUM.REC.ANLOG 100 UNITS/ML SQ SCH ×2 (09:22→20:24)
[2022-05-15 10:46] LABS: GLUCOMETER DEV NAME(LOC) 5S.1B; GLUCOSE,POINT OF CARE 165 MG/DL (70-110)
[2022-05-15 10:46] LABS: GLUCOMETER DEV NAME(LOC) 5S.1B; GLUCOSE,POINT OF CARE 179 MG/DL (70-110)
[2022-05-15 11:03] VITALS: BP 112/64
[2022-05-15 12:01] LABS: GLUCOMETER DEV NAME(LOC) 5S.1B; GLUCOSE,POINT OF CARE 257 MG/DL (70-110)
[2022-05-15 15:01] VITALS: BP 113/60
[2022-05-15 19:30] VITALS: BP 133/70
[2022-05-15 20:20] LABS: GLUCOMETER DEV NAME(LOC) 5N.1C; GLUCOSE,POINT OF CARE 348 MG/DL (70-110)
[2022-05-15] MEDS ORDERED: SODIUM POLYSTYRENE SULFONATE 15 GM/60 ML SUSPENSION BOTTLE PO ONE (21:00)
[2022-05-15] MEDS ORDERED: CALCIUM GLUCONATE 1,000 MG in DEXTROSE 5%-WATER 50 ML IV ONE (21:00)
[2022-05-15 21:07] LABS: GLUCOMETER DEV NAME(LOC) 5S.1B; GLUCOSE,POINT OF CARE 335 MG/DL (70-110)
[2022-05-16 00:18] VITALS: BP 113/64
[2022-05-16 04:23] VITALS: BP 115/64
[2022-05-16 06:14] LABS: EOSINOPHILS % (AUTO) 0 % (1.0-6.0); HEMATOCRIT 33.5 % (41-53); HEMOGLOBIN 11.3 g/dL (13.5-17.5); LYMPHOCYTES # (AUTO) 0.8 K/uL (1.0-4.8); LYMPHOCYTES % (AUTO) 7.1 % (22.0-44.0); MEAN CORPUSCULAR HEMOGLOBIN 31.5 pg (26.0-34.0); MEAN CORPUSCULAR HGB CONC 33.7 G/dL (31.0-37.0); MEAN CORPUSCULAR VOLUME 94 fL (80-100); MONOCYTES # (AUTO) 0.9 K/uL (0.1-1.0); MONOCYTES % (AUTO) 8.5 % (2.0-9.0); NEUTROPHILS # (AUTO) 9.1 K/uL (1.8-7.7); NEUTROPHILS % (AUTO) 84.4 % (40.0-70.0); PLATELET COUNT (AUTO) 151 K/uL (150-450); RED BLOOD CELL COUNT(AUTO) 3.58 MIL/uL (4.50-5.90); RED CELL DISTRIBUTION WIDTH 17.2 % (11.5-14.5)
[2022-05-16 06:41] LABS: GLUCOMETER DEV NAME(LOC) 5S.1B; GLUCOSE,POINT OF CARE 154 MG/DL (70-110)
[2022-05-16 06:41] LABS: CALCIUM, TOTAL 8.2 mg/dL (8.8-10.5); CREATININE 2.87 mg/dL (0.60-1.30); MAGNESIUM 2.3 mg/dL (1.80-2.40); PHOSPHORUS 4.7 mg/dL (2.5-4.9)
[2022-05-16 07:45] VITALS: BP 128/74
[2022-05-16] MEDS: OXYGEN THERAPY IH SCH ×2 (08:00→21:00)
[2022-05-16] MEDS: DOCUSATE SODIUM 100 MG CAPSULE PO SCH ×2 (09:00→21:00)
[2022-05-16] MEDS: CARVEDILOL 6.25 MG TABLET PO SCH ×2 (10:13→21:01)
[2022-05-16] MEDS: INSULIN GLARGINE,HUM.REC.ANLOG 100 UNITS/ML SQ SCH ×2 (10:13→21:03)
[2022-05-16] MEDS: DEXAMETHASONE SOD PHOS 4 MG/ML VIAL IVP SCH (10:13)
[2022-05-16] MEDS: AMIODARONE HCL 200 MG TABLET PO SCH ×2 (10:13→21:01)
[2022-05-16] MEDS: PANTOPRAZOLE SODIUM 40 MG DR TABLET PO SCH (10:13)
[2022-05-16] MEDS: LevETIRAcetam 500 MG in DEXTROSE 5%-WATER 100 ML IV SCH ×2 (10:14→22:17)
[2022-05-16] MEDS: CITRIC ACID/SODIUM CITRATE 30 ML SOLUTION UDCUP PO SCH (10:14)
[2022-05-16 11:06] VITALS: BP 120/67
[2022-05-16] MEDS: INSULIN LISPRO 100 UNITS/ML SQ PRN ×3 (12:16→21:03)
[2022-05-16 14:21] LABS: GLUCOMETER DEV NAME(LOC) 5S.1B; GLUCOSE,POINT OF CARE 250 MG/DL (70-110)
[2022-05-16 15:09] VITALS: BP 127/63
[2022-05-16 19:56] LABS: GLUCOMETER DEV NAME(LOC) 5N.1C; GLUCOSE,POINT OF CARE 237 MG/DL (70-110)
[2022-05-16 20:06] VITALS: BP 127/72
[2022-05-17] VITALS (7 sets, daily range): BP systolic 97–119; BP diastolic 54–70
[2022-05-17 00:11] LABS: GLUCOMETER DEV NAME(LOC) 5S.1B; GLUCOSE,POINT OF CARE 231 MG/DL (70-110)
[2022-05-17 07:47] LABS: CALCIUM, TOTAL 8.1 mg/dL (8.8-10.5); CREATININE 2.35 mg/dL (0.60-1.30); PHOSPHORUS 3.9 mg/dL (2.5-4.9); POTASSIUM 4.5 mmol/L (3.5-5.1)
[2022-05-17] MEDS: OXYGEN THERAPY IH SCH ×2 (08:00→20:00)
[2022-05-17 08:56] LABS: GLUCOMETER DEV NAME(LOC) 6N.1; GLUCOSE,POINT OF CARE 80 MG/DL (70-110)
[2022-05-17] MEDS: INSULIN GLARGINE,HUM.REC.ANLOG 100 UNITS/ML SQ SCH ×2 (08:59→21:23)
[2022-05-17] MEDS: CARVEDILOL 6.25 MG TABLET PO SCH (09:00)
[2022-05-17] MEDS: FUROSEMIDE 40 MG TABLET PO SCH (09:00)
[2022-05-17] MEDS: AMIODARONE HCL 200 MG TABLET PO SCH ×2 (09:00→21:00)
[2022-05-17] MEDS: PANTOPRAZOLE SODIUM 40 MG DR TABLET PO SCH (09:01)
[2022-05-17] MEDS: DOCUSATE SODIUM 100 MG CAPSULE PO SCH ×2 (09:02→21:20)
[2022-05-17] MEDS: DEXAMETHASONE SOD PHOS 4 MG/ML VIAL IVP SCH (09:11)
[2022-05-17] MEDS ORDERED: SODIUM CHLORIDE 0.9% 500 ML IV ONE (10:10)
[2022-05-17] MEDS: LevETIRAcetam 500 MG in DEXTROSE 5%-WATER 100 ML IV SCH ×2 (10:40→21:26)
[2022-05-17] MEDS: CITRIC ACID/SODIUM CITRATE 30 ML SOLUTION UDCUP PO SCH (12:47)
[2022-05-17 13:31] LABS: GLUCOMETER DEV NAME(LOC) 6N.1; GLUCOSE,POINT OF CARE 228 MG/DL (70-110)
[2022-05-17] MEDS: INSULIN LISPRO 100 UNITS/ML SQ PRN ×2 (17:07→21:23)
[2022-05-17 20:05] LABS: GLUCOMETER DEV NAME(LOC) 6N.1; GLUCOSE,POINT OF CARE 341 MG/DL (70-110)
[2022-05-17] MEDS: CARVEDILOL 3.125 MG TABLET PO SCH (21:00)
[2022-05-18 04:25] VITALS: BP 99/57
[2022-05-18] MEDS: INSULIN LISPRO 100 UNITS/ML SQ PRN ×4 (05:29→20:51)
[2022-05-18 06:01] LABS: GLUCOMETER DEV NAME(LOC) 6N.2B; GLUCOSE,POINT OF CARE 154 MG/DL (70-110)
[2022-05-18] MEDS: OXYGEN THERAPY IH SCH ×2 (08:00→20:00)
[2022-05-18 08:09] VITALS: BP 112/65
[2022-05-18 08:10] VITALS: BP 106/58
[2022-05-18] MEDS: DOCUSATE SODIUM 100 MG CAPSULE PO SCH ×2 (08:19→20:52)
[2022-05-18] MEDS: INSULIN GLARGINE,HUM.REC.ANLOG 100 UNITS/ML SQ SCH ×2 (08:19→20:52)
[2022-05-18] MEDS: PANTOPRAZOLE SODIUM 40 MG DR TABLET PO SCH (08:19)
[2022-05-18] MEDS: DEXAMETHASONE SOD PHOS 4 MG/ML VIAL IVP SCH (08:22)
[2022-05-18] MEDS: AMIODARONE HCL 200 MG TABLET PO SCH ×2 (08:29→21:00)
[2022-05-18] MEDS: FUROSEMIDE 40 MG TABLET PO SCH (08:29)
[2022-05-18] MEDS: CARVEDILOL 3.125 MG TABLET PO SCH ×2 (08:29→20:59)
[2022-05-18 08:56] LABS: GLUCOMETER DEV NAME(LOC) 6N.2B; GLUCOSE,POINT OF CARE 152 MG/DL (70-110)
[2022-05-18] MEDS: LevETIRAcetam 500 MG in DEXTROSE 5%-WATER 100 ML IV SCH ×2 (09:39→20:56)
[2022-05-18] MEDS: CITRIC ACID/SODIUM CITRATE 30 ML SOLUTION UDCUP PO SCH (09:42)
[2022-05-18] MEDS ORDERED: SODIUM CHLORIDE 0.9% 500 ML IV ONE ×2 (10:35→10:45)
[2022-05-18 11:53] LABS: EOSINOPHILS % (AUTO) 0 % (1.0-6.0); HEMATOCRIT 30.1 % (41-53); HEMOGLOBIN 9.9 g/dL (13.5-17.5); LYMPHOCYTES # (AUTO) 0.4 K/uL (1.0-4.8); LYMPHOCYTES % (AUTO) 2.3 % (22.0-44.0); MEAN CORPUSCULAR HEMOGLOBIN 30.3 pg (26.0-34.0); MEAN CORPUSCULAR HGB CONC 32.9 G/dL (31.0-37.0); MEAN CORPUSCULAR VOLUME 92 fL (80-100); MONOCYTES # (AUTO) 0.5 K/uL (0.1-1.0); MONOCYTES % (AUTO) 2.7 % (2.0-9.0); NEUTROPHILS # (AUTO) 16.3 K/uL (1.8-7.7); PLATELET COUNT (AUTO) 139 K/uL (150-450); RED BLOOD CELL COUNT(AUTO) 3.26 MIL/uL (4.50-5.90)
[2022-05-18 11:56] LABS: GLUCOMETER DEV NAME(LOC) 6N.1; GLUCOSE,POINT OF CARE 300 MG/DL (70-110)
[2022-05-18 15:49] VITALS: BP 104/59
[2022-05-18 19:40] VITALS: BP 102/58
[2022-05-18 22:56] LABS: GLUCOMETER DEV NAME(LOC) 6N.1; GLUCOSE,POINT OF CARE 236 MG/DL (70-110)
[2022-05-18 22:56] LABS: GLUCOMETER DEV NAME(LOC) 6N.1; GLUCOSE,POINT OF CARE 280 MG/DL (70-110)
[2022-05-19 03:21] LABS: GLUCOMETER DEV NAME(LOC) 6N.2B; GLUCOSE,POINT OF CARE 308 MG/DL (70-110)
[2022-05-19 04:00] VITALS: BP 103/55
[2022-05-19 04:28] VITALS: BP 103/55
[2022-05-19 06:57] LABS: BASOPHILS % (AUTO) 0.1 % (0.0-2.0); EOSINOPHILS % (AUTO) 0.1 % (1.0-6.0); HEMOGLOBIN 9.6 g/dL (13.5-17.5); LYMPHOCYTES # (AUTO) 0.9 K/uL (1.0-4.8); LYMPHOCYTES % (AUTO) 6.3 % (22.0-44.0); MEAN CORPUSCULAR HEMOGLOBIN 31.3 pg (26.0-34.0); MEAN CORPUSCULAR HGB CONC 33.1 G/dL (31.0-37.0); MEAN CORPUSCULAR VOLUME 95 fL (80-100); MONOCYTES % (AUTO) 6.8 % (2.0-9.0); NEUTROPHILS # (AUTO) 12.9 K/uL (1.8-7.7); PLATELET COUNT (AUTO) 135 K/uL (150-450); RED BLOOD CELL COUNT(AUTO) 3.07 MIL/uL (4.50-5.90); RED CELL DISTRIBUTION WIDTH 17.1 % (11.5-14.5)
[2022-05-19 07:03] LABS: NEUTROPHILS % (AUTO) 86.7 % (40.0-70.0)
[2022-05-19 07:06] LABS: GLUCOMETER DEV NAME(LOC) 6N.2B; GLUCOSE,POINT OF CARE 112 MG/DL (70-110)
[2022-05-19 07:15] LABS: CREATININE 2.14 mg/dL (0.60-1.30); MAGNESIUM 2.2 mg/dL (1.80-2.40); PHOSPHORUS 3.8 mg/dL (2.5-4.9); POTASSIUM 4.8 mmol/L (3.5-5.1)
[2022-05-19 07:48] VITALS: BP 107/56
[2022-05-19] MEDS: OXYGEN THERAPY IH SCH ×2 (08:00→20:00)
[2022-05-19] MEDS: PANTOPRAZOLE SODIUM 40 MG DR TABLET PO SCH (08:16)
[2022-05-19] MEDS: DEXAMETHASONE SOD PHOS 4 MG/ML VIAL IVP SCH (08:16)
[2022-05-19] MEDS: INSULIN GLARGINE,HUM.REC.ANLOG 100 UNITS/ML SQ SCH ×2 (08:38→20:07)
[2022-05-19] MEDS: FUROSEMIDE 40 MG TABLET PO SCH (08:38)
[2022-05-19] MEDS: DOCUSATE SODIUM 100 MG CAPSULE PO SCH ×2 (08:39→20:08)
[2022-05-19] MEDS: AMIODARONE HCL 200 MG TABLET PO SCH ×2 (08:39→20:45)
[2022-05-19] MEDS: CARVEDILOL 3.125 MG TABLET PO SCH ×2 (08:39→20:45)
[2022-05-19 10:16] LABS: GLUCOMETER DEV NAME(LOC) 6N.2B; GLUCOSE,POINT OF CARE 155 MG/DL (70-110)
[2022-05-19] MEDS: CITRIC ACID/SODIUM CITRATE 30 ML SOLUTION UDCUP PO SCH (10:45)
[2022-05-19] MEDS: LevETIRAcetam 500 MG in DEXTROSE 5%-WATER 100 ML IV SCH ×2 (10:45→20:40)
[2022-05-19] MEDS: INSULIN LISPRO 100 UNITS/ML SQ PRN ×3 (11:33→20:07)
[2022-05-19 12:51] LABS: GLUCOMETER DEV NAME(LOC) 6N.1; GLUCOSE,POINT OF CARE 187 MG/DL (70-110)
[2022-05-19 15:08] VITALS: BP 97/50
[2022-05-19 17:51] LABS: GLUCOMETER DEV NAME(LOC) 6N.2B; GLUCOSE,POINT OF CARE 250 MG/DL (70-110)
[2022-05-19 20:31] VITALS: BP 113/57
[2022-05-19] MEDS ORDERED: SODIUM CHLORIDE 0.9% 500 ML IV ONE (20:38)
[2022-05-20 00:06] LABS: GLUCOMETER DEV NAME(LOC) 6N.1; GLUCOSE,POINT OF CARE 291 MG/DL (70-110)
[2022-05-20 04:09] VITALS: BP 123/66
[2022-05-20 06:39] LABS: BASOPHILS % (AUTO) 0.1 % (0.0-2.0); EOSINOPHILS % (AUTO) 0.3 % (1.0-6.0); HEMATOCRIT 31.7 % (41-53); HEMOGLOBIN 10.6 g/dL (13.5-17.5); LYMPHOCYTES # (AUTO) 0.8 K/uL (1.0-4.8); LYMPHOCYTES % (AUTO) 7.3 % (22.0-44.0); MEAN CORPUSCULAR HEMOGLOBIN 31.2 pg (26.0-34.0); MEAN CORPUSCULAR HGB CONC 33.6 G/dL (31.0-37.0); MEAN CORPUSCULAR VOLUME 93 fL (80-100); MONOCYTES # (AUTO) 0.8 K/uL (0.1-1.0); MONOCYTES % (AUTO) 6.9 % (2.0-9.0); NEUTROPHILS # (AUTO) 9.8 K/uL (1.8-7.7); PLATELET COUNT (AUTO) 160 K/uL (150-450); RED BLOOD CELL COUNT(AUTO) 3.41 MIL/uL (4.50-5.90); RED CELL DISTRIBUTION WIDTH 17.1 % (11.5-14.5)
[2022-05-20 06:47] LABS: NEUTROPHILS % (AUTO) 85.4 % (40.0-70.0)
[2022-05-20 07:00] LABS: MAGNESIUM 2.2 mg/dL (1.80-2.40); PHOSPHORUS 3.1 mg/dL (2.5-4.9)
[2022-05-20 07:11] LABS: CALCIUM, TOTAL 8.4 mg/dL (8.8-10.5); CREATININE 2.08 mg/dL (0.60-1.30); POTASSIUM 5.6 mmol/L (3.5-5.1)
[2022-05-20 07:25] LABS: GLUCOMETER DEV NAME(LOC) 6N.2B; GLUCOSE,POINT OF CARE 117 MG/DL (70-110)
[2022-05-20 07:57] VITALS: BP 116/72
[2022-05-20] MEDS: OXYGEN THERAPY IH SCH ×2 (08:00→20:00)
[2022-05-20] MEDS: DOCUSATE SODIUM 100 MG CAPSULE PO SCH ×2 (08:50→20:35)
[2022-05-20] MEDS: FUROSEMIDE 40 MG TABLET PO SCH (08:51)
[2022-05-20] MEDS: PANTOPRAZOLE SODIUM 40 MG DR TABLET PO SCH (08:51)
[2022-05-20] MEDS: DEXAMETHASONE SOD PHOS 4 MG/ML VIAL IVP SCH (08:51)
[2022-05-20] MEDS: CARVEDILOL 3.125 MG TABLET PO SCH ×2 (08:52→20:35)
[2022-05-20] MEDS: INSULIN GLARGINE,HUM.REC.ANLOG 100 UNITS/ML SQ SCH ×2 (08:54→20:39)
[2022-05-20] MEDS ORDERED: SODIUM POLYSTYRENE SULFONATE 15 GM/60 ML SUSPENSION BOTTLE PO ONE (09:45)
[2022-05-20] MEDS ORDERED: SODIUM CHLORIDE 0.9% 500 ML IV ONE (09:45)
[2022-05-20 10:22] VITALS: BP 120/74
[2022-05-20] MEDS: LevETIRAcetam 500 MG in DEXTROSE 5%-WATER 100 ML IV SCH ×2 (10:31→21:50)
[2022-05-20] MEDS: CITRIC ACID/SODIUM CITRATE 30 ML SOLUTION UDCUP PO SCH (10:34)
[2022-05-20] MEDS: AMIODARONE HCL 200 MG TABLET PO SCH ×2 (10:34→20:35)
[2022-05-20] MEDS: INSULIN LISPRO 100 UNITS/ML SQ PRN ×3 (12:01→20:39)
[2022-05-20 15:39] VITALS: BP 102/61
[2022-05-20 20:18] VITALS: BP 105/65
[2022-05-20 22:26] LABS: GLUCOMETER DEV NAME(LOC) 6N.2B; GLUCOSE,POINT OF CARE 355 MG/DL (70-110)
[2022-05-20 22:26] LABS: GLUCOMETER DEV NAME(LOC) 6N.2B; GLUCOSE,POINT OF CARE 284 MG/DL (70-110)
[2022-05-20 22:26] LABS: GLUCOMETER DEV NAME(LOC) 6N.2B; GLUCOSE,POINT OF CARE 333 MG/DL (70-110)
[2022-05-21 04:05] VITALS: BP 107/64
[2022-05-21 07:04] LABS: EOSINOPHILS % (AUTO) 0.2 % (1.0-6.0); HEMATOCRIT 31.3 % (41-53); HEMOGLOBIN 10.2 g/dL (13.5-17.5); LYMPHOCYTES # (AUTO) 0.9 K/uL (1.0-4.8); LYMPHOCYTES % (AUTO) 6.6 % (22.0-44.0); MEAN CORPUSCULAR HEMOGLOBIN 30.4 pg (26.0-34.0); MEAN CORPUSCULAR HGB CONC 32.5 G/dL (31.0-37.0); MEAN CORPUSCULAR VOLUME 93 fL (80-100); MONOCYTES # (AUTO) 0.9 K/uL (0.1-1.0); NEUTROPHILS # (AUTO) 11.6 K/uL (1.8-7.7); PLATELET COUNT (AUTO) 162 K/uL (150-450); RED BLOOD CELL COUNT(AUTO) 3.35 MIL/uL (4.50-5.90); RED CELL DISTRIBUTION WIDTH 17.1 % (11.5-14.5)
[2022-05-21 07:11] LABS: NEUTROPHILS % (AUTO) 86.2 % (40.0-70.0)
[2022-05-21 07:11] LABS: GLUCOMETER DEV NAME(LOC) 6N.1; GLUCOSE,POINT OF CARE 90 MG/DL (70-110)
[2022-05-21 07:15] LABS: CALCIUM, TOTAL 8.1 mg/dL (8.8-10.5); CREATININE 2.07 mg/dL (0.60-1.30); POTASSIUM 5.2 mmol/L (3.5-5.1)
[2022-05-21 07:47] VITALS: BP 110/69
[2022-05-21] MEDS: OXYGEN THERAPY IH SCH (08:00)
[2022-05-21] MEDS: INSULIN GLARGINE,HUM.REC.ANLOG 100 UNITS/ML SQ SCH ×2 (09:16→20:54)
[2022-05-21] MEDS: AMIODARONE HCL 200 MG TABLET PO SCH ×2 (09:23→21:22)
[2022-05-21] MEDS: PANTOPRAZOLE SODIUM 40 MG DR TABLET PO SCH (09:23)
[2022-05-21] MEDS: DEXAMETHASONE SOD PHOS 4 MG/ML VIAL IVP SCH (09:23)
[2022-05-21] MEDS: CARVEDILOL 3.125 MG TABLET PO SCH ×2 (09:24→20:33)
[2022-05-21] MEDS: FUROSEMIDE 40 MG TABLET PO SCH (09:24)
[2022-05-21] MEDS: DOCUSATE SODIUM 100 MG CAPSULE PO SCH ×2 (09:24→20:33)
[2022-05-21] MEDS: ACETAMINOPHEN 325 MG TABLET PO PRN (09:24)
[2022-05-21] MEDS: LevETIRAcetam 500 MG in DEXTROSE 5%-WATER 100 ML IV SCH ×2 (10:45→21:21)
[2022-05-21] MEDS: CITRIC ACID/SODIUM CITRATE 30 ML SOLUTION UDCUP PO SCH (10:50)
[2022-05-21] MEDS: SODIUM ZIRCONIUM CYCLOSILICATE 5 GM POWDER PACKET PO SCH (12:45)
[2022-05-21] MEDS ORDERED: SODIUM ZIRCONIUM CYCLOSILICATE 5 GM POWDER PACKET PO SCH (13:15)
[2022-05-21] MEDS ORDERED: SODIUM CHLORIDE 0.9% 1,000 ML IV ONE (13:15)
[2022-05-21 15:20] VITALS: BP 111/62
[2022-05-21] MEDS: INSULIN LISPRO 100 UNITS/ML SQ PRN ×2 (17:54→20:53)
[2022-05-21 19:27] LABS: GLUCOMETER DEV NAME(LOC) 6N.2B; GLUCOSE,POINT OF CARE 379 MG/DL (70-110)
[2022-05-21 20:02] VITALS: BP 123/68
[2022-05-21 20:56] LABS: GLUCOMETER DEV NAME(LOC) 6N.1; GLUCOSE,POINT OF CARE 320 MG/DL (70-110)
[2022-05-22 04:26] VITALS: BP 129/70
[2022-05-22] MEDS: INSULIN LISPRO 100 UNITS/ML SQ PRN ×4 (06:01→20:19)
[2022-05-22 07:06] LABS: CALCIUM, TOTAL 8.3 mg/dL (8.8-10.5); CREATININE 2.28 mg/dL (0.60-1.30); POTASSIUM 5.5 mmol/L (3.5-5.1)
[2022-05-22 07:33] VITALS: BP 129/72
[2022-05-22 07:46] LABS: GLUCOMETER DEV NAME(LOC) 6N.1; GLUCOSE,POINT OF CARE 144 MG/DL (70-110)
[2022-05-22] MEDS: OXYGEN THERAPY IH SCH (08:00)
[2022-05-22] MEDS: INSULIN GLARGINE,HUM.REC.ANLOG 100 UNITS/ML SQ SCH ×2 (09:26→20:19)
[2022-05-22] MEDS: SODIUM ZIRCONIUM CYCLOSILICATE 5 GM POWDER PACKET PO SCH (09:29)
[2022-05-22] MEDS: CITRIC ACID/SODIUM CITRATE 30 ML SOLUTION UDCUP PO SCH (09:29)
[2022-05-22] MEDS: LevETIRAcetam 500 MG in DEXTROSE 5%-WATER 100 ML IV SCH ×2 (09:29→21:43)
[2022-05-22] MEDS: DOCUSATE SODIUM 100 MG CAPSULE PO SCH ×2 (09:30→20:18)
[2022-05-22] MEDS: ACETAMINOPHEN 325 MG TABLET PO PRN (09:30)
[2022-05-22] MEDS: FUROSEMIDE 40 MG TABLET PO SCH (09:30)
[2022-05-22] MEDS: CARVEDILOL 3.125 MG TABLET PO SCH ×2 (09:30→20:18)
[2022-05-22] MEDS: PANTOPRAZOLE SODIUM 40 MG DR TABLET PO SCH (09:30)
[2022-05-22] MEDS: AMIODARONE HCL 200 MG TABLET PO SCH ×2 (09:30→20:18)
[2022-05-22] MEDS: DEXAMETHASONE SOD PHOS 4 MG/ML VIAL IVP SCH (09:31)
[2022-05-22 14:56] LABS: GLUCOMETER DEV NAME(LOC) 6N.1; GLUCOSE,POINT OF CARE 312 MG/DL (70-110)
[2022-05-22 15:05] VITALS: BP 94/53
[2022-05-22] MEDS ORDERED: SODIUM CHLORIDE 0.9% 1,000 ML IV ONE (16:00)
[2022-05-22 20:09] VITALS: BP 103/57
[2022-05-22 23:56] LABS: GLUCOMETER DEV NAME(LOC) 6N.2B; GLUCOSE,POINT OF CARE 304 MG/DL (70-110)
[2022-05-22 23:56] LABS: GLUCOMETER DEV NAME(LOC) 6N.1; GLUCOSE,POINT OF CARE 284 MG/DL (70-110)
[2022-05-23 04:39] VITALS: BP 113/63
[2022-05-23] MEDS: INSULIN LISPRO 100 UNITS/ML SQ PRN ×4 (05:56→21:25)
[2022-05-23 06:46] LABS: GLUCOMETER DEV NAME(LOC) 6N.1; GLUCOSE,POINT OF CARE 137 MG/DL (70-110)
[2022-05-23 07:30] VITALS: BP 103/60
[2022-05-23] MEDS: OXYGEN THERAPY IH SCH ×2 (08:00→20:00)
[2022-05-23] MEDS: DEXAMETHASONE SOD PHOS 4 MG/ML VIAL IVP SCH (08:18)
[2022-05-23] MEDS: FUROSEMIDE 40 MG TABLET PO SCH (08:18)
[2022-05-23] MEDS: DOCUSATE SODIUM 100 MG CAPSULE PO SCH ×2 (08:18→21:12)
[2022-05-23] MEDS: PANTOPRAZOLE SODIUM 40 MG DR TABLET PO SCH (08:18)
[2022-05-23] MEDS: SODIUM ZIRCONIUM CYCLOSILICATE 5 GM POWDER PACKET PO SCH (08:18)
[2022-05-23] MEDS: INSULIN GLARGINE,HUM.REC.ANLOG 100 UNITS/ML SQ SCH ×2 (08:28→21:27)
[2022-05-23] MEDS: CARVEDILOL 3.125 MG TABLET PO SCH ×2 (09:00→21:12)
[2022-05-23] MEDS: AMIODARONE HCL 200 MG TABLET PO SCH ×2 (09:00→21:12)
[2022-05-23] MEDS: LevETIRAcetam 500 MG in DEXTROSE 5%-WATER 100 ML IV SCH ×2 (10:05→21:12)
[2022-05-23] MEDS: CITRIC ACID/SODIUM CITRATE 30 ML SOLUTION UDCUP PO SCH (10:10)
[2022-05-23 15:53] VITALS: BP 119/64
[2022-05-23 19:06] LABS: GLUCOMETER DEV NAME(LOC) 6N.1; GLUCOSE,POINT OF CARE 242 MG/DL (70-110)
[2022-05-23 19:06] LABS: GLUCOMETER DEV NAME(LOC) 6N.1; GLUCOSE,POINT OF CARE 268 MG/DL (70-110)
[2022-05-23 19:35] VITALS: BP 113/63
[2022-05-23 22:36] LABS: GLUCOMETER DEV NAME(LOC) 6N.1; GLUCOSE,POINT OF CARE 318 MG/DL (70-110)
[2022-05-24 04:15] VITALS: BP 106/68
[2022-05-24] MEDS: INSULIN LISPRO 100 UNITS/ML SQ PRN ×4 (05:51→20:46)
[2022-05-24 06:06] LABS: GLUCOMETER DEV NAME(LOC) 6N.1; GLUCOSE,POINT OF CARE 183 MG/DL (70-110)
[2022-05-24 07:08] LABS: EOSINOPHILS % (AUTO) 0.1 % (1.0-6.0); HEMATOCRIT 30.4 % (41-53); HEMOGLOBIN 10.1 g/dL (13.5-17.5); LYMPHOCYTES # (AUTO) 0.9 K/uL (1.0-4.8); LYMPHOCYTES % (AUTO) 6.8 % (22.0-44.0); MEAN CORPUSCULAR HEMOGLOBIN 30.6 pg (26.0-34.0); MEAN CORPUSCULAR VOLUME 93 fL (80-100); MONOCYTES # (AUTO) 0.8 K/uL (0.1-1.0); NEUTROPHILS # (AUTO) 11.5 K/uL (1.8-7.7); PLATELET COUNT (AUTO) 173 K/uL (150-450); RED BLOOD CELL COUNT(AUTO) 3.28 MIL/uL (4.50-5.90)
[2022-05-24 07:09] LABS: CALCIUM, TOTAL 8.5 mg/dL (8.8-10.5); CREATININE 2.34 mg/dL (0.60-1.30); NEUTROPHILS % (AUTO) 87.1 % (40.0-70.0); POTASSIUM 5.7 mmol/L (3.5-5.1)
[2022-05-24] MEDS: OXYGEN THERAPY IH SCH ×2 (08:00→20:00)
[2022-05-24] MEDS: AMIODARONE HCL 200 MG TABLET PO SCH ×2 (08:17→20:50)
[2022-05-24] MEDS: CARVEDILOL 3.125 MG TABLET PO SCH ×2 (08:17→20:50)
[2022-05-24] MEDS: CITRIC ACID/SODIUM CITRATE 30 ML SOLUTION UDCUP PO SCH (08:20)
[2022-05-24] MEDS: PANTOPRAZOLE SODIUM 40 MG DR TABLET PO SCH (08:20)
[2022-05-24] MEDS: SODIUM ZIRCONIUM CYCLOSILICATE 5 GM POWDER PACKET PO SCH (08:26)
[2022-05-24] MEDS: DEXAMETHASONE SOD PHOS 4 MG/ML VIAL IVP SCH (08:54)
[2022-05-24] MEDS: FUROSEMIDE 20 MG TABLET PO SCH (09:25)
[2022-05-24] MEDS: INSULIN GLARGINE,HUM.REC.ANLOG 100 UNITS/ML SQ SCH ×2 (09:25→20:47)
[2022-05-24] MEDS: DOCUSATE SODIUM 100 MG CAPSULE PO SCH ×2 (09:25→20:50)
[2022-05-24] MEDS ORDERED: SODIUM CHLORIDE 0.9% 500 ML IV ONE (09:45)
[2022-05-24] MEDS: LevETIRAcetam 500 MG in DEXTROSE 5%-WATER 100 ML IV SCH ×2 (11:39→22:07)
[2022-05-24 17:21] LABS: GLUCOMETER DEV NAME(LOC) 6N.2B; GLUCOSE,POINT OF CARE 218 MG/DL (70-110)
[2022-05-24 18:56] LABS: GLUCOMETER DEV NAME(LOC) 6N.1; GLUCOSE,POINT OF CARE 292 MG/DL (70-110)
[2022-05-24 20:05] VITALS: BP 105/57
[2022-05-24 23:51] LABS: GLUCOMETER DEV NAME(LOC) 6N.1; GLUCOSE,POINT OF CARE 333 MG/DL (70-110)
[2022-05-25 04:37] VITALS: BP 117/79
[2022-05-25] MEDS: INSULIN LISPRO 100 UNITS/ML SQ PRN ×4 (06:03→20:33)
[2022-05-25 06:37] LABS: GLUCOMETER DEV NAME(LOC) 6N.2B; GLUCOSE,POINT OF CARE 144 MG/DL (70-110)
[2022-05-25 07:11] LABS: BASOPHILS % (AUTO) 0.1 % (0.0-2.0); EOSINOPHILS % (AUTO) 0.3 % (1.0-6.0); HEMATOCRIT 30.8 % (41-53); HEMOGLOBIN 10.4 g/dL (13.5-17.5); LYMPHOCYTES # (AUTO) 0.7 K/uL (1.0-4.8); LYMPHOCYTES % (AUTO) 8.2 % (22.0-44.0); MEAN CORPUSCULAR HEMOGLOBIN 31.5 pg (26.0-34.0); MEAN CORPUSCULAR HGB CONC 33.9 G/dL (31.0-37.0); MEAN CORPUSCULAR VOLUME 93 fL (80-100); MONOCYTES # (AUTO) 0.6 K/uL (0.1-1.0); MONOCYTES % (AUTO) 6.4 % (2.0-9.0); NEUTROPHILS # (AUTO) 7.3 K/uL (1.8-7.7); PLATELET COUNT (AUTO) 165 K/uL (150-450); RED BLOOD CELL COUNT(AUTO) 3.31 MIL/uL (4.50-5.90)
[2022-05-25 07:42] LABS: CALCIUM, TOTAL 8.2 mg/dL (8.8-10.5); CREATININE 2.34 mg/dL (0.60-1.30); POTASSIUM 5.1 mmol/L (3.5-5.1)
[2022-05-25 08:16] VITALS: BP 128/70
[2022-05-25] MEDS: CITRIC ACID/SODIUM CITRATE 30 ML SOLUTION UDCUP PO SCH (08:24)
[2022-05-25] MEDS: DEXAMETHASONE SOD PHOS 4 MG/ML VIAL IVP SCH ×2 (08:24→09:00)
[2022-05-25] MEDS: DOCUSATE SODIUM 100 MG CAPSULE PO SCH ×2 (08:24→20:29)
[2022-05-25] MEDS: AMIODARONE HCL 200 MG TABLET PO SCH ×2 (08:24→20:28)
[2022-05-25] MEDS: PANTOPRAZOLE SODIUM 40 MG DR TABLET PO SCH (08:25)
[2022-05-25] MEDS: CARVEDILOL 3.125 MG TABLET PO SCH ×2 (08:25→20:35)
[2022-05-25] MEDS: FUROSEMIDE 20 MG TABLET PO SCH (08:25)
[2022-05-25] MEDS: SODIUM ZIRCONIUM CYCLOSILICATE 5 GM POWDER PACKET PO SCH (08:26)
[2022-05-25] MEDS: LevETIRAcetam 500 MG in DEXTROSE 5%-WATER 100 ML IV SCH (10:34)
[2022-05-25] MEDS: INSULIN GLARGINE,HUM.REC.ANLOG 100 UNITS/ML SQ SCH ×2 (12:08→20:34)
[2022-05-25 16:06] VITALS: BP 96/50
[2022-05-25 19:45] VITALS: BP 101/54
[2022-05-25] MEDS: OXYGEN THERAPY IH SCH (20:00)
[2022-05-25 23:56] LABS: GLUCOMETER DEV NAME(LOC) 6N.2B; GLUCOSE,POINT OF CARE 357 MG/DL (70-110)
[2022-05-25 23:56] LABS: GLUCOMETER DEV NAME(LOC) 6N.2B; GLUCOSE,POINT OF CARE 255 MG/DL (70-110)
[2022-05-25 23:56] LABS: GLUCOMETER DEV NAME(LOC) 6N.2B; GLUCOSE,POINT OF CARE 351 MG/DL (70-110)
[2022-05-26] MEDS: LevETIRAcetam 500 MG in DEXTROSE 5%-WATER 100 ML IV SCH (00:15)
[2022-05-26 04:51] VITALS: BP 122/65
[2022-05-26 07:01] LABS: GLUCOMETER DEV NAME(LOC) 6N.2B; GLUCOSE,POINT OF CARE 86 MG/DL (70-110)
[2022-05-26 07:06] LABS: BASOPHILS % (AUTO) 0.1 % (0.0-2.0); EOSINOPHILS % (AUTO) 0.1 % (1.0-6.0); HEMATOCRIT 30.6 % (41-53); HEMOGLOBIN 10.1 g/dL (13.5-17.5); LYMPHOCYTES # (AUTO) 0.7 K/uL (1.0-4.8); LYMPHOCYTES % (AUTO) 9.1 % (22.0-44.0); MEAN CORPUSCULAR HEMOGLOBIN 30.7 pg (26.0-34.0); MEAN CORPUSCULAR VOLUME 93 fL (80-100); MONOCYTES # (AUTO) 0.5 K/uL (0.1-1.0); MONOCYTES % (AUTO) 6.8 % (2.0-9.0); NEUTROPHILS # (AUTO) 6.7 K/uL (1.8-7.7); NEUTROPHILS % (AUTO) 83.9 % (40.0-70.0); PLATELET COUNT (AUTO) 168 K/uL (150-450); RED BLOOD CELL COUNT(AUTO) 3.29 MIL/uL (4.50-5.90); RED CELL DISTRIBUTION WIDTH 16.8 % (11.5-14.5)
[2022-05-26 07:19] LABS: CALCIUM, TOTAL 8.1 mg/dL (8.8-10.5); CREATININE 2.38 mg/dL (0.60-1.30); POTASSIUM 5.1 mmol/L (3.5-5.1)
[2022-05-26 07:30] VITALS: BP 118/66
[2022-05-26] MEDS: OXYGEN THERAPY IH SCH (08:00)
[2022-05-26] MEDS: SODIUM ZIRCONIUM CYCLOSILICATE 5 GM POWDER PACKET PO SCH (08:15)
[2022-05-26] MEDS: AMIODARONE HCL 200 MG TABLET PO SCH (08:16)
[2022-05-26] MEDS: CARVEDILOL 3.125 MG TABLET PO SCH (08:17)
[2022-05-26] MEDS: DOCUSATE SODIUM 100 MG CAPSULE PO SCH (08:17)
[2022-05-26] MEDS: PANTOPRAZOLE SODIUM 40 MG DR TABLET PO SCH (08:17)
[2022-05-26] MEDS: FUROSEMIDE 20 MG TABLET PO SCH (08:17)
[2022-05-26] MEDS: DEXAMETHASONE SOD PHOS 4 MG/ML VIAL IVP SCH (08:19)
[2022-05-26] MEDS: INSULIN GLARGINE,HUM.REC.ANLOG 100 UNITS/ML SQ SCH (08:50)
[2022-05-26 09:31] LABS: GLUCOMETER DEV NAME(LOC) 6N.1; GLUCOSE,POINT OF CARE 162 MG/DL (70-110)
[2022-05-26] MEDS ORDERED: FURO20 PO (09:57)
[2022-05-26] MEDS ORDERED: AMIO200T68 PO (09:58)
[2022-05-26] MEDS: CITRIC ACID/SODIUM CITRATE 30 ML SOLUTION UDCUP PO SCH (10:29)
[2022-05-26] MEDS: INSULIN LISPRO 100 UNITS/ML SQ PRN ×2 (12:02→17:26)
[2022-05-26 13:41] LABS: GLUCOMETER DEV NAME(LOC) 6N.1; GLUCOSE,POINT OF CARE 173 MG/DL (70-110)
[2022-05-26] MEDS ORDERED: NOREPINEPHRINE 8 MG/D5%-WATER 250 ML IV PRN (19:30)
[2022-05-26] MEDS ORDERED: DOPamine 400MG/D5W[STANDARD] 250 ML IV PRN (19:30)
[2022-05-26] MEDS ORDERED: PROPOFOL 1000 MG/ISO-OSM 100 ML IV PRN (19:30)
[2022-05-26] MEDS ORDERED: EPINEPHrine 1:10,000 [1 MG/10 ML] SYRINGE ONE (19:51)
[2022-05-26] MEDS ORDERED: SODIUM BICARBONATE [ADULT] 8.4% 50 MEQ/50 ML SYRINGE IVP ONE (19:57)
[2022-05-26] MEDS ORDERED: ATROPINE SULFATE 0.1 MG/ML 10 ML SYRINGE IVP ONE (19:57)
[2022-05-26] MEDS ORDERED: CALCIUM GLUCONATE 100 MG/ML 10 ML IVP ONE (19:57)
[2022-05-26] MEDS ORDERED: VASOPRESSIN 40 UNITS in DEXTROSE 5%-WATER 98 ML IV PRN (20:00)
[2022-05-26 20:02] LABS: CALCIUM, TOTAL 8.1 mg/dL (8.8-10.5); CREATININE 2.9 mg/dL (0.60-1.30); MAGNESIUM 2.3 mg/dL (1.80-2.40); POTASSIUM 5.4 mmol/L (3.5-5.1)
[2022-05-26 20:06] LABS: GLUCOMETER DEV NAME(LOC) 6N.2B; GLUCOSE,POINT OF CARE 229 MG/DL (70-110)
[2022-05-26 20:07] LABS: GLUCOMETER DEV NAME(LOC) 6N.1; GLUCOSE,POINT OF CARE 220 MG/DL (70-110)
[2022-05-26] MEDS ORDERED: LevETIRAcetam 500 MG TABLET PO SCH (21:00)
[2022-05-26] MEDS ORDERED: AMIODARONE HCL 200 MG TABLET PO SCH (21:00)
[2022-05-27 06:31] LABS: GLUCOSE,POINT OF CARE 241 MG/DL (70-110)
[2022-05-27] MEDS ORDERED: INSULIN GLARGINE,HUM.REC.ANLOG 100 UNITS/ML SQ SCH (09:00)
== END 2022-05-26 19:58 | DRG 21 ==
LOC: EMS 19:48 → ICUN 23:08 → ICU 05-08 15:58 → 5S 05-13 18:35 → 6S 05-17 01:10 → ICU 05-26 18:45
PROVIDERS: ADMIT Internal Medicine; ATTEND Internal Medicine
PROC: 5A1935Z Respiratory Ventilation, Less than 24 Consecutive Hours (ICD-10-PCS; 2022-05-08)
PROC: 0BH18EZ Insertion of Endotracheal Airway into Trachea, Via Natural or Artificial Opening Endoscopic (ICD-10-PCS; 2022-05-08)
PROC: 00C40ZZ Extirpation of Matter from Intracranial Subdural Space, Open Approach (ICD-10-PCS; principal; 2022-05-08 11:00)
DX: I62.00 Nontraumatic subdural hemorrhage, unspecified (principal); N17.0 Acute kidney failure with tubular necrosis; I49.01 Ventricular fibrillation; I50.43 Acute on chronic combined systolic (congestive) and diastolic (congestive) heart failure; E44.0 Moderate protein-calorie malnutrition; D63.1 Anemia in chronic kidney disease; E87.20 Acidosis, unspecified; R47.01 Aphasia; I48.0 Paroxysmal atrial fibrillation; R56.9 Unspecified convulsions; G81.91 Hemiplegia, unspecified affecting right dominant side; I13.0 Hypertensive heart and chronic kidney disease with heart failure and stage 1 through stage 4 chronic kidney disease, or unspecified chronic kidney disease; E11.22 Type 2 diabetes mellitus with diabetic chronic kidney disease; E78.5 Hyperlipidemia, unspecified; G93.2 Benign intracranial hypertension; N18.4 Chronic kidney disease, stage 4 (severe); I25.5 Ischemic cardiomyopathy; E11.65 Type 2 diabetes mellitus with hyperglycemia; G93.89 Other specified disorders of brain; E87.8 Other disorders of electrolyte and fluid balance, not elsewhere classified; N25.0 Renal osteodystrophy; R13.10 Dysphagia, unspecified; E87.5 Hyperkalemia; I46.9 Cardiac arrest, cause unspecified; Z88.1 Allergy status to other antibiotic agents; Z79.4 Long term (current) use of insulin; Z79.84 Long term (current) use of oral hypoglycemic drugs; Z79.899 Other long term (current) drug therapy; Z68.23 Body mass index [BMI] 23.0-23.9, adult; Z79.82 Long term (current) use of aspirin; T17.218A Gastric contents in pharynx causing other injury, initial encounter
CPT/HCPCS: 70450; 70496; 70498; 70544; 70551; 71045; 74230; 80048; 80053; 80307; 81001; 82948; 82962; 83735; 83880; 83970; 84100; 84132; 84484; 85025; 85610; 85730; 86850; 86900; 86901; 86923; 88304; 92507; 92523; 92526; 92610; 92611; 92950; 93005; 93306; 94002; 97110; 97112; 97116; 97163; 97167; 97530; 97535; 99291; G0378; J0131; J0171; J0282; J0461; J0610; J0690; J0712; J1100; J1160; J1815; J2060; J2250; J2270; J2370; J2405; J3010; J3370; J3490; J7030; J7040; J7050; J7060; J7120; Q9967; 36415-L1; 36415-TC; C1716; Z7610